=== PATIENT | female | born 1960 | race Caucasian/White ===

== ENCOUNTER 2016-07-15 09:34 | Emergency (ER) | payer OTHER ==
[~2016-07-15] VITALS: Ht 170.2 cm; Wt 97.0 kg
[~2016-07-15 09:34] MED LIST: HYDR-4107 PO; LISI40TA PO; PRED20 PO; TRAM50TA PO
[2016-07-15 09:38] VITALS: BP 159/90; PULSE 90; RESP 16; TEMP 97.9; O2SAT 95
[2016-07-15] MEDS ORDERED: BUPR100CR PO (09:47)
--- NOTE | 2016-07-15 10:16 | RADHPO ---
EXAM DATE/TIME: 07/15/2016 09:55 [facility] COMPARISON: No previous studies available for comparison. EXTERNAL COMPARISON : [facility] October 05, 2015 INDICATIONS : Right shoulder pain & decreased range of motion post fall this morning. Recent right total shoulder r eplacement September 2015 @ [facility]. MEDICAL HISTORY : Hypertension. Arthritis. Irritable bowel syndrome. Anemia. Chronic Low back pain. SURGICAL HISTORY : Appendectomy. Hysterectomy. Right total shoulder replacement. ENCOUNTER: Initial ACUITY: 1 day PAIN SCORE: 10/10 LOCATION: Right shoulder FINDINGS: Multiple view examination of the right shoulder demonstrates total shoulder arthroplasty. Both the hu meral and glenoid components are appropriately positioned without fracture or dislocation. Regional o sseous structures are intact. Visualized portions of the adjacent lung are clear. CONCLUSION: 1. Right total shoulder arthroplasty. 2. No fracture. Brian Gunn MD on July 15, 2016 at 10:13 Board Certified Radiologist. This report was verified electronically.
[2016-07-15] MEDS ORDERED: NORC5TAB PO (10:18)
--- NOTE | 2016-07-15 10:18 | PD ---
HPI Chief Complaint: Musculoskeletal Complaint Time Seen by Provider: 09:59 Travel History International Travel<30 days: No Contact w/Intl Traveler<30days: No Traveled to known affect area: No History of Present Illness HPI 56-year-old female complains right shoulder pain. Patient states that she tripped and fell against a wall and struck the right shoulder against a wall this morning. Patient denies loss of consciousness. Patient denies any headache or neck pain. Patient denies any chest pain or shortness of breath. Patient complains aching pain and low back area. Patient denies any focal weakness or numbness of extremity. Patient status post right shoulder surgery in the past. On a scale of 1-10 the pain is a 10. PFSH Past Medical History Anemia: Yes Arthritis: Yes (L4 and L5 and right hand) Asthma: No Autoimmune Disease: No Anxiety: Yes Depression: Yes Heart Rhythm Problems: No Cancer: Yes (SKIN) Cardiovascular Problems: Yes (HTN) Chemotherapy: No Chest Pain: Yes Congestive Heart Failure: No COPD: No Cerebrovascular Accident: No Diabetes: No Diminished Hearing: No Endocrine: No Gastrointestinal Disorders: No GERD: No Genitourinary: No Headaches: No Hiatal Hernia: No Hypertension: Yes (HAS SINCE RESOLVED) Immune Disorder: No Implanted Vascular Access Dvce: Yes Kidney Stones: No Medical other: Yes (ARTHRITIS, ANEMIA) Musculoskeletal: Yes (CHRONIC LOW BACK PAIN) Neurologic: No Psychiatric: Yes Reproductive: No Immunizations Current: No Migraines: Yes (years ago) Radiation Therapy: No Renal Failure: No Seizures: No Sickle Cell Disease: No Sleep Apnea: No Thyroid Disease: No Ulcer: No PNEUMOCCOCAL Vaccine (Year): 2 ?: Not Menopausal: Yes : 4 Para: 2 Miscarriage: 2 Ovarian Cysts: Yes Past Surgical History Abdominal Surgery: No AICD: No Appendectomy: Yes Arteriovenous Shunt: No Body Medical Devices: MARKER LT BREAST Ear Surgery: No Endocrine Surgery: No Eye Surgery: No Genitourinary Surgery: No Gynecologic Surgery: Yes (TOTAL HYSTERECTOMY) Hysterectomy: Yes Insulin Pump: No Joint Replacement: No Neurologic Surgery: No Oral Surgery: Yes (TEETH REMOVED) Pacemaker: No Thoracic Surgery: Yes (LEFT BREASY BIOPSY WITH MARKER PLACED) Other Surgery: Yes (SKIN CANCER REMOVED FROM SCALP) Family History Family Myocardial Infarction: Yes Social History Alcohol Use: No (DENIES IN PAST 4 YRS) Tobacco Use: Yes (1PPD) Substance Use: No Allergies-Medications (Allergen,Severity, Reaction): Coded Allergies: Nonsteroidal Anti-Inflammatory Agts (Verified Allergy, Intermediate, HIVES , 07/15/16) Reported Meds & Prescriptions Reported Meds & Active Scripts Active Tramadol (Tramadol HCl) 50 Mg Tab 50 Mg PO Q6H PRN Reported Lisinopril 40 Mg Tab 20 PO DAILY Review of Systems General / Constitutional: No: Fever Eyes: No: Visual changes HENT: No: Headaches Cardiovascular: No: Chest Pain or Discomfort Respiratory: No: Shortness of Breath Gastrointestinal: No: Abdominal Pain Genitourinary: No: Dysuria Musculoskeletal: Positive: Pain Skin: No Rash Neurologic: No: Weakness Psychiatric: No: Depression Endocrine: No: Polydipsia Hematologic/Lymphatic: No: Easy Bruising Physical Exam Narrative GENERAL: Well-nourished, well-developed patient. SKIN: Focused skin assessment warm/dry. HEAD: Normocephalic. EYES: No scleral icterus. No injection or drainage. NECK: Supple, trachea midline. No JVD or lymphadenopathy. CARDIOVASCULAR: Regular rate and rhythm without murmurs, gallops, or rubs. RESPIRATORY: Breath sounds equal bilaterally. No accessory muscle use. GASTROINTESTINAL: Abdomen soft, non-tender, nondistended. MUSCULOSKELETAL: No cyanosis, or edema. Patient has moderate diffuse tenderness over the right shoulder joint. Limited range of motion of the right shoulder joint secondary to pain. Sensorimotor function distally intact. BACK: Mild tenderness on palpation paravertebral areas lumbar spine, without obvious deformity. No CVA tenderness. Neurologic exam normal. Data Data Last Documented VS Vital Signs Date Time Temp Pulse Resp B/P Pulse Ox O2 Delivery O2 Flow Rate FiO2 07/15/16 09:38 97.9 90 16 159/90 95 Orders Shoulder, Complete (>2vws) (07/15/16 ) Splint Or Brace Apply/Monitor (07/15/16 10:11) MDM Medical Decision Making Medical Screen Exam Complete: Yes Emergency Medical Condition: Yes Interpretation(s) 10:17 AM. X-rays right shoulder shows no acute bony injury. Status post right shoulder surgery. Prosthesis in place. Differential Diagnosis Differential diagnosis including contusion, fracture, dislocation. Narrative Course 56-year-old female with right shoulder injury. Status post right shoulder surgery in the past. Sling applied right arm. Diagnosis Primary Impression: Contusion of right shoulder Qualified Code: S40.011A - Contusion of right shoulder, initial encounter Patient Instructions: General Instructions Additional Instructions: Ice pack as needed. Take medication as needed for pain. Follow-up with an orthopedist. Med/Other Pt SpecificInfo: Prescription(s) given Scripts Hydrocodone-Acetaminophen ([place])5-325 mg Tab1 Tab PO Q6H PRN (PAIN) #20 TAB Prov:Ole Prado MD 07/15/16 Disposition: 01 DISCHARGE HOME Condition: Stable Ole Prado MD Jul 15, 2016 10:18
== END 2016-07-15 10:32 | disposition home or self-care (01) ==
LOC: PHEFT 09:34
DX: S40.011A Contusion of right shoulder, initial encounter (principal); D64.9 Anemia, unspecified; M19.90 Unspecified osteoarthritis, unspecified site; F41.9 Anxiety disorder, unspecified; F32.9 Major depressive disorder, single episode, unspecified; I10 Essential (primary) hypertension; F17.200 Nicotine dependence, unspecified, uncomplicated
CPT/HCPCS: 73030; 99283

== ENCOUNTER 2016-09-16 12:54 | Emergency (ER) | payer OTHER ==
[~2016-09-16] VITALS: Ht 170.2 cm; Wt 97.6 kg
[~2016-09-16 12:54] MED LIST changes: +BUPR100CR PO; -HYDR-4107 PO; +NORC5TAB PO; -PRED20 PO; -TRAM50TA PO
[2016-09-16 13:07] VITALS: BP 144/94; PULSE 94; RESP 20; TEMP 98; O2SAT 98
[2016-09-16] MEDS ORDERED: ACETAMINOPHEN 500 MG CPLT PO ONE (13:30)
--- NOTE | 2016-09-16 14:26 | RADHPO ---
EXAM DATE/TIME: 09/16/2016 13:28 [facility] COMPARISON: SHOULDER RIGHT COMPLETE (>2VWS), July 15, 2016, 9:55. INDICATIONS : Right shoulder pain post lifting/reaching injury today. MEDICAL HISTORY : Hypertension. Arthritis. Irritable bowel syndrome. Anemia. Chronic Low back pain. SURGICAL HISTORY : Appendectomy. Hysterectomy. Right total shoulder replacement. ENCOUNTER: Initial ACUITY: 1 day PAIN SCORE: 10/10 LOCATION: Right shoulder FINDINGS: 2 view examination of the right shoulder demonstrates proximal humeral prosthesis and screw in the ac etabulum. Alignment of the bony structures is maintained on these 2 frontal views. The visualized r ight upper ribs and the a.c. joint is intact. No radiopaque foreign bodies other than clips related to clothing. CONCLUSION: No evidence of fracture or dislocation. Himanshu Thomas MD on September 16, 2016 at 14:24 Board Certified Radiologist. This report was verified electronically.
--- NOTE | 2016-09-16 14:29 | RADHPO ---
EXAM DATE/TIME: 09/16/2016 13:31 [facility] COMPARISON: No previous studies available for comparison. INDICATIONS : Right mid humeral pain post lifting/reaching injury. MEDICAL HISTORY : Hypertension. Arthritis. Irritable bowel syndrome. Anemia. Chronic Low back pain. SURGICAL HISTORY : Appendectomy. Hysterectomy. Right total shoulder replacement. ENCOUNTER: Initial ACUITY: 1 day PAIN SCORE: 10/10 LOCATION: Right mid humerus FINDINGS: Total shoulder arthroplasty with intact femoral shaft component. No definite discontinuities of the cortex of the proximal humerus. There is thinning of a short segment of the lateral proximal femoral cortex. The bone cement interface about the proximal medial humerus is mildly widened, measuring le ss than 2 mm. The visualized right upper ribs are intact the a.c. joint is intact. CONCLUSION: Intact total shoulder arthroplasty hardware. Possible loosening proximal medial humerus with mild wi dening of the bone-cement interface. Himanshu Thomas MD on September 16, 2016 at 14:25 Board Certified Radiologist. This report was verified electronically.
[2016-09-16 14:41] VITALS: RESP 15
--- NOTE | 2016-09-16 14:42 | PD ---
HPI Chief Complaint: Musculoskeletal Complaint Time Seen by Provider: 13:19 Travel History International Travel<30 days: No Contact w/Intl Traveler<30days: No Traveled to known affect area: No History of Present Illness HPI This is a 56-year-old raising her arms above her head to put something up on a shelf when she fell her arm pull. She has a history of a right shoulder arthroplasty. She reports severe pain in her right upper arm, constant, associated with some numbness in her thumb, second and third digits. She has no other injuries. PFSH Past Medical History Anemia: Yes Arthritis: Yes (L4 and L5 and right hand) Asthma: No Autoimmune Disease: No Anxiety: Yes Depression: Yes Heart Rhythm Problems: No Cancer: Yes (SKIN) Cardiovascular Problems: Yes (HTN) Chemotherapy: No Chest Pain: Yes Congestive Heart Failure: No COPD: No Cerebrovascular Accident: No Diabetes: No Diminished Hearing: No Endocrine: No Gastrointestinal Disorders: No GERD: No Genitourinary: No Headaches: No Hiatal Hernia: No Hypertension: Yes (HAS SINCE RESOLVED) Immune Disorder: No Implanted Vascular Access Dvce: Yes Kidney Stones: No Medical other: Yes (ARTHRITIS, ANEMIA) Musculoskeletal: Yes (CHRONIC LOW BACK PAIN) Neurologic: No Psychiatric: Yes Reproductive: No Immunizations Current: No Migraines: Yes (years ago) Radiation Therapy: No Renal Failure: No Seizures: No Sickle Cell Disease: No Sleep Apnea: No Thyroid Disease: No Ulcer: No PNEUMOCCOCAL Vaccine (Year): 2 ?: Not Menopausal: Yes : 4 Para: 2 Miscarriage: 2 Ovarian Cysts: Yes Past Surgical History Abdominal Surgery: No AICD: No Appendectomy: Yes Arteriovenous Shunt: No Body Medical Devices: MARKER LT BREAST Ear Surgery: No Endocrine Surgery: No Eye Surgery: No Genitourinary Surgery: No Gynecologic Surgery: Yes (TOTAL HYSTERECTOMY) Hysterectomy: Yes Insulin Pump: No Joint Replacement: No Neurologic Surgery: No Oral Surgery: Yes (TEETH REMOVED) Pacemaker: No Thoracic Surgery: Yes (LEFT BREASY BIOPSY WITH MARKER PLACED) Other Surgery: Yes (SKIN CANCER REMOVED FROM SCALP) Family History Family Myocardial Infarction: Yes Social History Alcohol Use: No (DENIES IN PAST 4 YRS) Tobacco Use: Yes (1/2 PPD) Substance Use: No Allergies-Medications (Allergen,Severity, Reaction): Coded Allergies: Nonsteroidal Anti-Inflammatory Agts (Verified Allergy, Intermediate, HIVES , 09/16/16) Reported Meds & Prescriptions Reported Meds & Active Scripts Active Reported Lisinopril 40 Mg Tab 20 PO DAILY Review of Systems General / Constitutional: No: Fever, Chills Cardiovascular: No: Chest Pain or Discomfort Physical Exam Narrative GENERAL: Well-appearing, no acute distress, nontoxic SKIN: Warm and dry. HEAD: Atraumatic. Normocephalic. ENT: No nasal bleeding or discharge. Moist mucous membranes Vascular: 2+ right radial pulse with normal capillary refill. MUSCULOSKELETAL: Tender to palpation over the proximal humerus NEUROLOGICAL: Awake and alert. No obvious cranial nerve deficits. Motor grossly within normal limits. Normal speech. Sensation and motor are intact in the median, ulnar and radial distribution of the right hand PSYCHIATRIC: Appropriate mood and affect; insight and judgment normal. Data Data Last Documented VS Vital Signs Date Time Temp Pulse Resp B/P Pulse Ox O2 Delivery O2 Flow Rate FiO2 09/16/16 13:07 98.0 94 20 144/94 98 Orders Acetaminophen (Tylenol) (09/16/16 13:30) Shoulder, Limited(2vws) (09/16/16 ) Humerus (Min 2vws) (09/16/16 ) MDM Medical Decision Making Medical Screen Exam Complete: Yes Emergency Medical Condition: Yes Interpretation(s) Afebrile, no tachycardia, hypertensive Last 24 hours Impressions Shoulder X-Ray 09/16/16 0000 Signed Impressions: Service Date/Time: Friday, September 16, 2016 13:28 - CONCLUSION: No evidence of fracture or dislocation. Himanshu Thomas MD Differential Diagnosis Shoulder sprain, contusion, shoulder dislocation Narrative Course This is a 56-year-old female who presents to the emergency department with pain in her right arm after she reached her arms over her head. X-ray of the humerus demonstrates some possible loosening of the proximal numerous with some widening of the face. She has a normal neurovascular exam. Patient will be started in a sling and swath and referred to orthopedics for further evaluation. Diagnosis Primary Impression: Loosening of bone fixation device Qualified Code: T84.498A - Loosening of bone fixation device, initial encounter Referrals: [facility] Patient Instructions: General Instructions Additional Instructions: If you develop weakness, numbness or severe pain return to the emergency department. Follow-up with orthopedics as soon as possible regarding your arm pain. Med/Other Pt SpecificInfo: No Change to Meds Disposition: 01 DISCHARGE HOME Condition: Stable Neeru Naidu MD Sep 16, 2016 14:42
== END 2016-09-16 14:51 | disposition home or self-care (01) ==
LOC: PHED 12:54
DX: T84.498A Other mechanical complication of other internal orthopedic devices, implants and grafts, initial encounter (principal); I10 Essential (primary) hypertension; D64.9 Anemia, unspecified; F17.210 Nicotine dependence, cigarettes, uncomplicated; Z96.611 Presence of right artificial shoulder joint
CPT/HCPCS: 29240; 73030; 73060

== ENCOUNTER 2017-03-20 10:38 | Emergency (ER) | payer OTHER ==
[~2017-03-20] VITALS: Ht 170.2 cm; Wt 99.4 kg
[~2017-03-20 10:38] MED LIST changes: -BUPR100CR PO; -NORC5TAB PO
[2017-03-20 10:40] VITALS: BP 133/78; PULSE 99; RESP 16; TEMP 97.7; O2SAT 97
--- NOTE | 2017-03-20 10:58 | PD ---
HPI Chief Complaint: Musculoskeletal Complaint Time Seen by Provider: 10:57 Travel History International Travel<30 days: No Contact w/Intl Traveler<30days: No Traveled to known affect area: No History of Present Illness HPI 56-year-old female presents the emergency department with ongoing worsening right heel pain for the past several days. She states that off and on for several weeks. Patient has tried [id number] medication and taping without improvement. She states it started with a new pair of shoes, that she wore for one day when symptoms started. Symptoms continue to worsen. Currently her pain is 10. Patient has difficulty ambulating secondary to the pain. Pain is localized to the posterior heel and medial heel. There is no numbness or tingling. There is no open wound or abrasion. Patient is allergic to NSAIDs by mouth as a cause stomach upset. PFSH Past Medical History Anemia: Yes Arthritis: Yes (L4 and L5 and right hand) Asthma: No Autoimmune Disease: No Anxiety: Yes Depression: Yes Heart Rhythm Problems: No Cancer: Yes (SKIN) Cardiovascular Problems: Yes (HTN) Chemotherapy: No Chest Pain: Yes Congestive Heart Failure: No COPD: No Cerebrovascular Accident: No Diabetes: No Diminished Hearing: No Endocrine: No Gastrointestinal Disorders: No GERD: No Genitourinary: No Headaches: No Hiatal Hernia: No Hypertension: Yes (HAS SINCE RESOLVED) Immune Disorder: No Implanted Vascular Access Dvce: Yes Kidney Stones: No Medical other: Yes (ARTHRITIS, ANEMIA) Musculoskeletal: Yes (CHRONIC LOW BACK PAIN) Neurologic: No Psychiatric: Yes Reproductive: No Immunizations Current: No Migraines: Yes (years ago) Radiation Therapy: No Renal Failure: No Seizures: No Sickle Cell Disease: No Sleep Apnea: No Thyroid Disease: No Ulcer: No Influenza Vaccination: No PNEUMOCCOCAL Vaccine (Year): 2 ?: Not Menopausal: Yes : 4 Para: 2 Miscarriage: 2 Ovarian Cysts: Yes Past Surgical History Abdominal Surgery: No AICD: No Appendectomy: Yes Arteriovenous Shunt: No Body Medical Devices: MARKER LT BREAST Ear Surgery: No Endocrine Surgery: No Eye Surgery: No Genitourinary Surgery: No Gynecologic Surgery: Yes (TOTAL HYSTERECTOMY) Hysterectomy: Yes Insulin Pump: No Joint Replacement: No Neurologic Surgery: No Oral Surgery: Yes (TEETH REMOVED) Pacemaker: No Thoracic Surgery: Yes (LEFT BREASY BIOPSY WITH MARKER PLACED) Other Surgery: Yes (SKIN CANCER REMOVED FROM SCALP) Family History Family Myocardial Infarction: Yes Social History Alcohol Use: No (DENIES IN PAST 4 YRS) Tobacco Use: Yes (1/2 PPD) Substance Use: No Allergies-Medications (Allergen,Severity, Reaction): Coded Allergies: diclofenac (Unverified Allergy, Intermediate, HIVES, 03/20/17) etodolac (Unverified Allergy, Intermediate, HIVES, 03/20/17) flurbiprofen (Unverified Allergy, Intermediate, HIVES, 03/20/17) ibuprofen (Unverified Allergy, Intermediate, HIVES, 03/20/17) indomethacin (Unverified Allergy, Intermediate, HIVES, 03/20/17) ketoprofen (Unverified Allergy, Intermediate, HIVES, 03/20/17) ketorolac (Unverified Allergy, Intermediate, HIVES, 03/20/17) naproxen (Unverified Allergy, Intermediate, HIVES, 03/20/17) oxaprozin (Unverified Allergy, Intermediate, HIVES, 03/20/17) Reported Meds & Prescriptions Reported Meds & Active Scripts Active Reported Lisinopril 40 Mg Tab 20 PO DAILY Review of Systems Except as stated in HPI: all other systems reviewed are Neg General / Constitutional: No: Fever Eyes: No: Visual changes HENT: No: Headaches Cardiovascular: No: Chest Pain or Discomfort Respiratory: No: Shortness of Breath Gastrointestinal: No: Abdominal Pain Genitourinary: No: Dysuria Musculoskeletal: Positive: Arthralgias, Limited ROM, Pain Skin: No Rash Neurologic: No: Weakness Psychiatric: No: Depression Endocrine: No: Polydipsia Hematologic/Lymphatic: No: Easy Bruising Physical Exam Narrative GENERAL: Moderate obese female in mild to moderate distress. SKIN: Warm and dry. Normal color. Normal turgor. No signs of infection. HEAD: Atraumatic. Normocephalic. EYES: Pupils equal and round. No scleral icterus. No injection or drainage. ENT: No nasal bleeding or discharge. Mucous membranes pink and moist. NECK: Trachea midline. Supple and nontender. CARDIOVASCULAR: Regular rate and rhythm. RESPIRATORY: No accessory muscle use. Clear to auscultation. Breath sounds equal bilaterally. MUSCULOSKELETAL: Extremities without clubbing, cyanosis, or edema. No obvious deformities. Right foot appears normal without edema, or signs of infection. Patient is extremely tender at the insertion site of the Achilles as well as medial heel suggestive of possible plantar fasciitis as well. NEUROLOGICAL: Awake and alert. No obvious cranial nerve deficits. Motor grossly within normal limits. Five out of 5 muscle strength in the arms and legs. Normal speech. PSYCHIATRIC: Appropriate mood and affect; insight and judgment normal. Data Data Last Documented VS Vital Signs Date Time Temp Pulse Resp B/P (MAP) Pulse Ox O2 Delivery O2 Flow Rate FiO2 03/20/17 10:40 97.7 99 16 133/78 (96) 97 Orders Orders Foot, Complete ([id number]) (03/20/17 11:03) Ice/Cold Pack (03/20/17 11:03) Ketorolac Inj (Toradol Inj) (03/20/17 11:15) Prednisone (Deltasone) (03/20/17 11:15) Splint Or Brace Apply/Monitor (03/20/17 11:30) Crutches (03/20/17 11:30) MDM Medical Decision Making Medical Screen Exam Complete: Yes Emergency Medical Condition: Yes Differential Diagnosis Achilles tendinitis. Bone spur. Plantar fasciitis. Right foot pain. Narrative Course Patient is given 60 mg prednisone by mouth. Patient is given Toradol 60 mg IM. X-rays of the right foot are obtained showing a bone spur to the Achilles tendon. Patient is placed in a postop shoe and crutches. Patient will be continued on prednisone 20 mg twice a day 7 days. Patient can take extra strength Tylenol as well as needed for pain. Patient should use ice to the area frequently. Patient follow with Dr. Lu, the pastrycook's assistant on-call for further evaluation and treatment as needed. Work note is given for the next 3 days. Diagnosis Primary Impression: Right Achilles tendinitis Additional Impressions: Bone spur Plantar fasciitis of right foot Referrals: Sydnee Lu DPM call for appointment Patient Instructions: Achilles Tendinitis (ED), Achilles Tendinitis Exercises ( GEN), General Instructions Departure Forms: Work Release Enter return to work date: Mar 23, 2017 Additional Instructions: X-rays of the right foot are obtained showing a bone spur to the Achilles tendon. Patient is placed in a postop shoe and crutches. Patient will be continued on prednisone 20 mg twice a day 7 days. Patient can take extra strength Tylenol as well as needed for pain. Patient should use ice to the area frequently. Patient follow with Dr. Lu, the pastrycook's assistant on-call for further evaluation and treatment as needed. Work note is given for the next 3 days. Med/Other Pt SpecificInfo: Prescription(s) given Disposition: 01 DISCHARGE HOME Condition: Stable Werner Watson Mar 20, 2017 10:58
[2017-03-20] MEDS ORDERED: KETOROLAC TROMETHAMINE 60 MG/2 ML (IM) VIAL IM ONE (11:15)
[2017-03-20] MEDS ORDERED: predniSONE 20 MG TAB PO ONE (11:15)
[2017-03-20] MEDS ORDERED: PRED20 PO (11:38)
--- NOTE | 2017-03-20 12:08 | RADRPT ---
EXAM DATE/TIME: 03/20/2017 11:11 [facility] COMPARISON: No previous studies available for comparison. INDICATIONS : Right heel pain with no known injury intermittently for 3 weeks progressively getting worse over the last few days. MEDICAL HISTORY : Hypertension. Arthritis. Irritable bowel syndrome. Anemia. Chronic Low back pain. SURGICAL HISTORY : Appendectomy. Hysterectomy. Right total shoulder replacement. ENCOUNTER: Initial ACUITY: 3 weeks PAIN SCORE: 9/10 LOCATION: Right foot/heel FINDINGS: Three view examination of the right foot demonstrates no soft tissue swelling, dislocation, or fractu re. The tarsal bones appear intact. The interphalangeal and metatarsophalangeal joints are intact. The calcaneus is intact. Bony mineralization is normal. Inferior and posterior calcaneal spurs are present. CONCLUSION: 1. Calcaneal spurs. There is no evidence of acute fracture. Donald Turcios MD on March 20, 2017 at 12:04 Board Certified Radiologist. This report was verified electronically.
== END 2017-03-20 11:52 | disposition home or self-care (01) ==
LOC: PHEFT 10:38
DX: M76.61 Achilles tendinitis, right leg (principal); M77.9 Enthesopathy, unspecified; M72.2 Plantar fascial fibromatosis; D64.9 Anemia, unspecified; M47.9 Spondylosis, unspecified
CPT/HCPCS: 73630; 96372; 99284; E0113; J1885; J7512; L3260